=== PATIENT | female | born 1950 | race Caucasian/White ===

== ENCOUNTER 2020-11-09 17:03 | Emergency (ER) | payer MEDICARE, MEDICAID, SELFPAY ==
[2020-11-09 17:00] VITALS: PULSE 0; RESP 0; O2SAT 0
--- NOTE | 2020-11-09 17:17 | PC.NURSE ---
code terminated. unsuccessful
--- NOTE | 2020-11-09 17:19 | ED.GENADULT ---
HPI - General Adult General Chief complaint: Cardiac Arrest/CPR Stated complaint: CARDIAC ARREST Time Seen by Provider: 11/09/20 17:19 Source: EMS Mode of arrival: EMS Limitations: clinical condition History of Present Illness HPI narrative: This is a 70 year old female with history pacemaker, GERD, DM who presents for evaluation of a cardiac arrest. EMS states they were called to [facility] and patient was found to be in cardiac arrest. EMS called [facility] around 1647 to notify they were inbound. EMS states nursing staff states they left patient for a few minutes and she was found in cardiac arrest. EMS reports patient was in Vfib. They shocked patient 1 once and patient has receive epi x 5. They intubated patient and placed a right leg IO. They reports patient was positive for COVID 4 weeks ago but she was doing fine. Related Data Allergies Allergy/AdvReac Type Severity Reaction Status Date / Time No Known Allergies Allergy Unverified 05/26/16 00:42 Review of Systems Review of Systems: ROS unobtainable: Yes unobtainable due to medical condition ON LICENSE OF [facility] Past Medical History Medical History (Updated 11/10/20 @ 00:14 by Lilly Min MD) Cardiac arrest Diabetes mellitus Pacemaker Social History Social History (Updated 11/09/20 @ 17:32 by Lilly Min MD) Smoking status: Smoker, status unknown Comments unknown social history Exam Const: General: ill appearing Nutritional Appearance: obese HENMT: Other: coffee ground emesis in mouth Eyes: Other: pupils fixed, nonreactive Resp: Other: intubated with ETT 27 teeth BIlateral breath sounds, slightly diminished on right Cardio: Other: pulseless GI: Inspection: non-distended GI Palp: Yes Soft to palpation and No Rigid due to palpation Skin: Other: mottled Neuro: Other: unresponsive Course Reevaluation(s) Reevaluation #1: Patient arrived in ER in cardiac arrest still. She is receiving CPR. After continuing ACLS protocol patient still remained in PEA. EMS reported downtown at this point is 1 hour. REscuscitation stopped Time of 1517. SEE code blue sheet Date: 11/09/20 Time: 17:33 Consultations Consultation #1: I discussed with Dr. Platt. He is aware of patient presented in cardiac arrest. He was notified patient . He states patient had been weak today with diarrhea but she refused to come to hospital. He states he will call and talk to family . I notified family as well. Date: 11/09/20 Time: 19:27 Vital Signs Vital signs: Vital Signs Pulse Rate 0 L 11/09/20 17:00 Respiratory Rate 0 L 11/09/20 17:00 Pulse Oximetry 0 L 11/09/20 17:00 Pulse Rate 0 L 11/09/20 17:00 Respiratory Rate 0 L 11/09/20 17:00 Pulse Oximetry 0 L 11/09/20 17:00 Medical Decision Making Vital Signs Vital Signs: Vital Signs Pulse Rate 0 L 11/09/20 17:00 Respiratory Rate 0 L 11/09/20 17:00 Pulse Oximetry 0 L 11/09/20 17:00 Pulse Rate 0 L 11/09/20 17:00 Respiratory Rate 0 L 11/09/20 17:00 Pulse Oximetry 0 L 11/09/20 17:00 Critical Care Time Critical Care Time Critical Care Time: Yes Total Critical Care Time: 35 Discharge Plan Discharge Clinical Impression: Cardiac arrest Patient Disposition: Condition: Follow-up/Referrals: Cindy Leblanc MD [Primary Care Provider] - [facility] Coma Scale Eyes: No Response Verbal: No Response Motor: No Response Sadie Coma Total Score: 3
--- NOTE | 2020-11-09 19:19 | PC.NURSE ---
spoke to [facility], [place] [facility]
--- NOTE | 2020-11-09 19:56 | PC.NURSE ---
1700 EMS arrived to ED, ACLS protocols used 1702 no pulse, CPR continued via YOU, Epi given via IO 1705 pulse check, no pulse, Pt. in v fib, shocked at 200J CPR continued 170 pulse check, patient had pulse in a paced rhythm 170 pulse lost, no pulse, CPR continued, 150mg amiodarone given via IO 1710 Pt. in PEA, EPI given via IO 1712 no pulse, sodium bicarb given via IO 1713 no, pulse, pt. is in PEA, CPR continued, EPI given via IO 1716 no pulse, pt. is in PEA, CPR stopped 1717 time of
[2020-11-10 07:08] LABS: Glucose Point of Care 311 (65-105)
== END 2020-11-09 20:06 | disposition expired ==
PROVIDERS: Emergency Provider General Practice; PCP Family Medicine
DX: I46.9 Cardiac arrest, cause unspecified (principal); Z86.16 Personal history of COVID-19; E11.9 Type 2 diabetes mellitus without complications; K21.9 Gastro-esophageal reflux disease without esophagitis; Z95.0 Presence of cardiac pacemaker
CPT/HCPCS: 82948; 92950; 99285; J0171; J0282